=== PATIENT | female | born 1985 | race Hispanic/Latino ===

== ENCOUNTER 2022-06-17 17:00 | Emergency (ER) | payer BC, SELFPAY ==
[2022-06-17 17:01] VITALS: BP 102/67; PULSE 76; RESP 15; TEMP 36.2; O2SAT 98; BMI 34.6
--- NOTE | 2022-06-17 21:37 | EX.ED.VIS.UR ---
HPI HPI - URI History of Present Illness Chief Complaint: Headache Narrative Narrative: 37-year-old female presenting with cough, congestion,, headache x3 days. Patient denies a fever. Does not feel she is sick and she complains of dust and heat at her job site because her period she is new to the area and does not have a primary care physician. She denies any medical problems except for allergies. She is not having chest pain. Is not short of breath. She does complain of headache but is not dizzy or lightheaded. Was nonacute onset in nature. She states Tylenol does improve her headache pain but it does return. She has not tried ibuprofen. She has no concern for as she has an implant. ROS ROS ED Constitutional Constitutional ED: Denies chills or fever(s) Eyes Eyes: Denies change in vision or diplopia ENT ENT ED: Reports rhinorrhea and sore throat Cardiovascular Cardiovascular: Denies chest pain or palpitations Respiratory/Chest Respiratory/Chest: Reports cough Gastrointestinal Gastrointestinal: Denies abdominal pain, nausea or vomiting Genitourinary Genitourinary ED: Reports dysuria and hematuria Musculoskeletal Musculoskeletal: Reports arthralgias Integumentary Denies abscess or Abrasions Neurologic Neurologic: Reports headache(s); Denies paresthesias Psychiatric Psychiatric: Denies anxiety or depression PFSH PFSH Home Medications naproxen 500 mg tablet (Naprosyn) 500 mg PO BID #30 tabs 06/17/22 [Rx Last Taken Unknown] Allergy/AdvReac Type Severity Reaction Status Date / Time Environmental Allergies: AdvReac Shortness Verified 06/17/22 17:07 Uncoded of breath [dust] Social History Smoking Status: Never smoker EXAM Physical Exam Const Vital Signs: 06/17/22 17:01 Temperature 97.1 F L Temperature Source Temporal Pulse Rate 76 Respiratory Rate 15 Blood Pressure 102/67 Blood Pressure Mean 78 Pulse Ox 98 Oxygen Delivery Method Room Air Positive well nourished General Appearance ED: NAD; Negative for pallor HEENT Reports moist mucous membranes normocephalic and atraumatic Throat: posterior oropharynx normal Eyes PERRL and EOMs intact bilaterally General Eye ED: Yes pale conjunctiva and scleral icterus Neck supple and no meningeal signs Resp normal respiratory effort and clear to auscultation bilaterally Auscultation: Negative for rales, rhonchi or wheezes Cardio Rate: regular rate and bradycardia GI non-tender Auscultation: Negative for normoactive bowel sounds or hyperactive bowel sounds Back/Spine no CVA tenderness Extremity normal to inspection and full ROM Neuro oriented x3 and CN's II-XII intact bilaterally Sensorium / Orientation: alert Motor Exam: strength 5/5 throughout Psych mental status grossly normal Skin General Skin Exam: Negative for jaundice or pallor MDM MDM MDM Narrative Medical decision making narrative: Patient presenting with headache which is mild and responds to Tylenol. She has not any focal neurologic deficits. Was not in acute onset headache. Patient states that she currently gets headaches because of where she works and is also causing her to have some shortness of breath. He states that she recently started working here. She denies any medical on exam her vital signs are normal. Her lungs are clear to auscultation. She was having a cough and burning in her lungs. I did test her for COVID and influenza and it was negative. Chest x-ray my interpretation shows no acute cardiopulmonary process. Radiologist agrees. Patient was given an albuterol inhaler to her breathing while she is at work. I do not believe she has a CT scan. I did give her a dose of Toradol here and she states this is improved. She requested a work note. This was provided. Impression: 1. Headache 2. Cough Lab Data Attestation: I reviewed the patient's lab results. Radiography Diagnostic Testing: Clinical Impression(s) from Imaging Studies Chest X-Ray 06/17/22 21:40 IMPRESSION: No radiographic evidence of acute cardiopulmonary disease. Electronically Signed: Young Meek MD at 21:57 EST , Discharge Plan Triage Chief Complaint: Headache ED Provider: Luis Alfredo Adam Dx/Rx/DC Orders Instructions: ED Dyspnea, ED Headache Unspecified Prescriptions: New naproxen [Naprosyn] 500 mg tablet 500 mg PO BID Qty: 30 0RF Stand Alone Forms: ED Work / School Excuse Primary Care Provider: Care Physician,No Primary Referrals: [facility] [Provider Group] - 3-5 Days Care Physician,No Primary [Primary Care Provider] - Print Language: Scottish Disposition Disposition: Home, Self Care
--- NOTE | 2022-06-17 21:40 | RAD_ITS ---
EXAM: XR CHEST, 1 VIEW CLINICAL INDICATION: cough TECHNIQUE: Frontal view of the chest. This report was created using [employer] report generation technology. COMPARISON: None. FINDINGS: LUNGS AND PLEURAL SPACES: Unremarkable. No consolidation or edema. No pneumothorax. No effusion. HEART: Unremarkable. Cardiac silhouette not enlarged. MEDIASTINUM: Central airways and mediastinal contour are unremarkable. BONES/JOINTS: Unremarkable. SOFT TISSUES: Unremarkable. RAD/Chest 1 View (Portable) IMPRESSION: No radiographic evidence of acute cardiopulmonary disease. Electronically Signed: Young Meek MD at 21:57 EST ,
[2022-06-17] MEDS: Ketorolac 15 MG/ML Vial IM (23:21)
[2022-06-18] MEDS: Albuterol Sulfate 8 gm Inhaler (60 puffs) 2 PUFF INHALATION (00:28)
[2022-06-18 00:31] VITALS: BP 109/77; PULSE 71; RESP 16; O2SAT 96
== END 2022-06-18 00:32 | disposition home or self-care (01) ==
PROVIDERS: Emergency Provider Student in an Organized Health Care Education/Training Program; Visit Provider Student in an Organized Health Care Education/Training Program
DX: R51.9 Headache, unspecified (principal); R05.9 Cough, unspecified
CPT/HCPCS: 71045; 87428; 96372; 99283